=== PATIENT | male | born 2000 | race African-American/Black ===

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

== ENCOUNTER 2021-07-05 15:07 | Emergency (ER) | payer BC, MEDICAID ==
[~2021-07-05] VITALS: Ht 162 cm; Wt 100.0 kg
[~2021-07-05 15:07] MED LIST changes: -OXYC-471 PO; +OXYC1TAB11 PO
[2021-07-05 15:23] VITALS: BP_DIAS 95
[2021-07-05] MEDS ORDERED: TETRACAINE 0.5% OPHTH SOLN 4 ML BTL (SINGLE DOSE ONLY) OP ONE (15:30)
[2021-07-05] MEDS ORDERED: BSS 15 ML IR ONE (15:30)
[2021-07-05] MEDS ORDERED: FLUORESCEIN (FLUOR-I-STRIPS) 1 MG STRP OU ONE (15:30)
[2021-07-05] MEDS ORDERED: TETANUS,DIPTH,PERTUSS P/F (BOOSTRIX) 0.5 ML VIAL IM ONE (15:30)
--- NOTE | 2021-07-05 15:34 | ED EENT ---
History of Present Illness General Chief Complaint: Eye Problems Stated Complaint: FOREIGN OBJECT IN EYE/UNABLE TO SEE Source: patient Exam Limitations: no limitations History of Present Illness Date Seen by Provider: Jul 05, 2021 Time Seen by Provider: 15:25 Initial Comments Patient is a 21-year-old male who presents to the emergency department today with a chief complaint of right eye pain, decreased visual acuity. Increased tearing. Patient states that he was trying to remove a chain from a 4 szym[employer] w hen the chain came back and hit him in the eye. He had immediate onset of the above-stated symptoms. Unknown last tetanus. No chronic medical illnesses, not a diabetic. No history of similar complaints in the past. No other complaints of illness or injury. All other review of systems reviewed and negative except as stated. Timing/Duration: abrupt Location: eye (R) Prearrival Treatment: no prearrival treatment Allergies and Home Medications Allergies Coded Allergies: Penicillins (Verified Allergy, Unknown, 08/04/14) azithromycin (Verified Allergy, Unknown, 08/04/14) prednisone (Verified Adverse Reaction, Mild, 03/07/12) EXTREMELY HYPER Patient Home Medication List Home Medication List Reviewed: Yes Albuterol Sulfate (Albuterol Sulfate Hfa) 8.5 Gm Hfa.aer.ad, 8.5 GM IH QID PRN for SHORTNESS OF BREATH Prescribed by: GRANT GOMES on 10/04/13 2341 Cephalexin Monohydrate (Cephalexin) 500 Mg Capsule, 1 EACH PO TID Prescribed by: ALEXI MONTANEZ on 11/05/142122 Metoprolol Succinate (Toprol Xl) 25 Mg Tab, 25 MG PO DAILY, (Reported) Entered as Reported by: ANA LEBLANC on 10/04/132147 Oseltamivir Phosphate (Rx-Tamiflu) 75 Mg Cap, 75 MG PO BID Prescribed by: ALEXI MONTANEZ on 11/05/142121 Oxycodone HCl/Acetaminophen (Oxycodone-Acetaminophen 5-325) 1 Each Tablet, 1 EACH PO Q6H PRN for PAIN-MODERATE Prescribed by: HANY ZULUAGA on 02/25/194 Oxycodone HCl/Acetaminophen (Oxycodone-Acetaminophen 5-325) 1 Each Tablet, 1 EACH PO Q4H PRN for PAIN-MODERATE Prescribed by: HANY ZULUAGA on 04/10/192134 Review of Systems Review of Systems Constitutional: see HPI Eyes: Blindness (right eye), Blurred Vision, Decreased Acuity, Foreign Body Sensation, Pain, Photophobia Ears: No Symptoms Reported Nose: no symptoms reported Mouth: no symptoms reported Respiratory: no symptoms reported Cardiovascular: no symptoms reported Gastrointestinal: no symptoms reported Musculoskeletal: no symptoms reported Skin: no symptoms reported All Other Systems Reviewed Negative Unless Noted: Yes Past Wngmmra-Grgaja-Yjfyjx Hx Immunizations Up To Date Tetanus Booster (TDap): Less than 5yrs PED Vaccines UTD: Yes Seasonal Allergies Seasonal Allergies: No Past Medical History Surgeries: Yes (r ankle) Orthopedic, Tonsillectomy Respiratory: No Cardiac: Yes High Cholesterol, Hypertension Neurological: No Reproductive Disorders: No Sexually Transmitted Disease: No Genitourinary: No Gastrointestinal: No Musculoskeletal: No Endocrine: No HEENT: No Cancer: No Psychosocial: Yes ADD/ADHD Integumentary: No Blood Disorders: No Family Medical History No Pertinent Family Hx Physical Exam Vital Signs Vital Signs - First Documented 07/05/21 15:23 Pulse 91 Resp 18 B/P (MAP) 149/95 (113) Pulse Ox 95 Height, Weight, BMI Height: 5'10.00" Weight: 260lbs. 0.0oz. 117.677973hk; 37.00 BMI Method:Stated General Appearance: WD/WN, no apparent distress Neck: non-tender, full range of motion, normal inspection Cardiovascular: regular rate, rhythm Respiratory: normal breath sounds, no respiratory distress, no accessory muscle use Gastrointestinal: non tender, soft Neurologic/Psychiatric: alert, normal mood/affect, oriented x 3 Skin: normal color, warm/dry Progress/Results/Core Measures Results/Orders My Orders Orders - GEMINI LAGUERRE MD Dipht,Pertuss(Acell),Tet Adult (Boostrix (07/05/21 15:30) Tetracaine 0.5% Ophth Lilia Sdv (Tetracai (07/05/21 15:30) Fluorescein Strips (Lqaga-A-Rmjppa) (07/05/21 15:30) Balanced Salt Irrigation Soln (Bss Irrig (07/05/21 15:30) Medications Given in ED Current Medications Medications Dose Ordered Sig/Jami Route Start Time Stop Time Status Last Admin Dose Admin Diphtheria/ Tetanus/Acell Pertussis 0.5 ml ONCE ONCE IM 07/05/21 15:30 07/05/21 15:32 DC 07/05/21 15:49 0.5 ML Fluorescein Sodium 1 mg ONCE ONCE OU 07/05/21 15:30 07/05/21 15:32 DC 07/05/21 15:49 1 MG Tetracaine HCl 1 OR 2 DROPS INTO AFFEC... ONCE ONCE OP 07/05/21 15:30 07/05/21 15:32 DC 07/05/21 15:49 4 ML Vital Signs/I&O 07/05/21 15:23 Pulse 91 Resp 18 B/P (MAP) 149/95 (113) Pulse Ox 95 Progress Progress Note : Time: 15:54 Progress Note Patient had a hard time obtaining anesthesia with the tetracaine, quite alot of tears. No significant uptake on staining. Has a vertical laceration throught the cornea at the 11 o'clock position with a speck of a black substance at the apex of the injury. pupil is VERY difficult to see throught a diffuse hyphema. I am unable to comment on any pupillary response. lots of ciliary flush noted. He states completely unable to see the eye chart with his right eye. left eye visual acuity 20/40. [address] Burnett initially and subsequently Dr. GILL called me back. States that he would like to see him in the office at 545 today. Stated that I did not need to do intraocular pressure testing prior to sending him out. He will further evaluate him and decide whether or not he needs to be sent to [place] to a surgeon. Patient's pain is fairly well controlled. Will offer some ibuprofen. All questions are sought and answered. Patient stable for discharge, to Dr. GILL's office as stated Departure Impression Primary Impression: Corneal laceration of right eye Qualified Codes: S05.31XA - Ocular laceration without prolapse or loss of intraocular tissue, right eye, initial encounter Additional Impression: Hyphema of right eye Disposition: 01 HOME, SELF-CARE Condition: Stable Departure-Patient Inst. Decision time for Depature: 16:44 Referrals: SAROJ SANZ MD (PCP) Primary Care Physician ALMAS GILL OD Patient Instructions: Hyphema Add. Discharge Instructions: wear the eye shield until you see Dr Gill at 5:45 in his office today. return to the Emergency Department for any new, emergent or concerning symptoms. Images Eye 1 - Laceration GEMINI LAGUERRE MD Jul 05, 2021 15:34
[2021-07-05] MEDS ORDERED: IBUPROFEN 600 MG (MOTRIN) TAB PO ONE (17:00)
[2021-07-05 17:01] VITALS: BP_SYST 149
== END 2021-07-05 17:11 | disposition home or self-care (01) ==
LOC: EDUNIT# 15:07 → ER 15:11
DX: S05.31XA Ocular laceration without prolapse or loss of intraocular tissue, right eye, initial encounter (principal); H21.01 Hyphema, right eye; I10 Essential (primary) hypertension; Z23 Encounter for immunization; Z79.899 Other long term (current) drug therapy; W22.8XXA Striking against or struck by other objects, initial encounter
CPT/HCPCS: 90715; 99282

== ENCOUNTER 2023-05-02 05:41 | Emergency (ER) | payer BC, MEDICAID ==
[~2023-05-02] VITALS: Ht 180 cm; Wt 111.0 kg
[2023-05-02 05:48] VITALS: BP 157/103
--- NOTE | 2023-05-02 06:21 | ED General ---
General Chief Complaint: General Problems/Pain Stated Complaint: ACID REFLUX Nursing Triage Note: PT TO ED W/ "BURNING IN CHEST". STATES LAST TIME HE HAD SIMILAR SYMPTOMS, WAS GIVEN "MEDS FOR ACID" BUT STATES "THEY'RE DOING NOTHING". PT DENIES TAKING ANYTHING OTC FOR SYMPTOMS AT THIS TIME. Source of Information: Patient Exam Limitations: No Limitations History of Present Illness Date Seen by Provider: May 02, 2023 Time Seen by Provider: 06:01 Initial Comments 23-year-old male presents emergency department today for acid reflux symptoms. Symptoms present for about a week and he states are severe. He has pain with swallowing and severe burning in his chest and stomach when he swallows anything at this point. Symptoms seem to be brought on during a viral illness. Other symptoms resolved but the reflux type symptoms have persisted. He was seen in [facility] 2 days ago and given pantoprazole, Carafate without much relief. No bloody or dark tarry stools. No fevers or chills. He has had some intermittent nausea but no vomiting. All other systems reviewed and negative except documented per HPI. Voice recognition software was used to help create this chart Allergies and Home Medications Allergies Coded Allergies: Penicillins (Verified Allergy, Unknown, 08/04/14) azithromycin (Verified Allergy, Unknown, 08/04/14) prednisone (Verified Adverse Reaction, Mild, 03/07/12) EXTREMELY HYPER Patient Home Medication List Home Medication List Reviewed: Yes Albuterol Sulfate (Albuterol Sulfate Hfa) 8.5 Gm Hfa.aer.ad, 8.5 GM IH QID PRN for SHORTNESS OF BREATH Prescribed by: GRANT GOMES on 10/04/13 2341 Cephalexin Monohydrate (Cephalexin) 500 Mg Capsule, 1 EACH PO TID Prescribed by: ALEXI MONTANEZ on 11/05/142122 Metoprolol Succinate (Toprol Xl) 25 Mg Tab, 25 MG PO DAILY, (Reported) Entered as Reported by: ANA LEBLANC on 10/04/132147 Oseltamivir Phosphate (Rx-Tamiflu) 75 Mg Cap, 75 MG PO BID Prescribed by: ALEXI MONTANEZ on 11/05/142121 Oxycodone HCl/Acetaminophen (Oxycodone-Acetaminophen 5-325) 1 Each Tablet, 1 EACH PO Q6H PRN for PAIN-MODERATE Prescribed by: HANY ZULUAGA on 02/25/19 0314 Oxycodone HCl/Acetaminophen (Oxycodone-Acetaminophen 5-325) 1 Each Tablet, 1 EACH PO Q4H PRN for PAIN-MODERATE Prescribed by: HANY ZULUAGA on 04/10/192134 Review of Systems Review of Systems Constitutional: see HPI Past Rggxxub-Ptcaeb-Bacuho Hx Patient Social History Tobacco Use?: No Use of E-Cig and/or Vaping dev: No Substance use?: No Alcohol Use?: Yes Pt feels they are or have been: No Immunizations Up To Date Tetanus Booster (TDap): Less than 5yrs PED Vaccines UTD: Yes Seasonal Allergies Seasonal Allergies: No Past Medical History Surgery/Hospitalization HX: RT ANKLE RT SHOULDER T&A EYE Surgeries: Yes (r ankle) Orthopedic, Tonsillectomy Respiratory: No Cardiac: Yes High Cholesterol, Hypertension Neurological: No Reproductive Disorders: No Sexually Transmitted Disease: No Genitourinary: No Gastrointestinal: No Musculoskeletal: No Endocrine: No HEENT: No Cancer: No Psychosocial: Yes ADD/ADHD Integumentary: No Blood Disorders: No Family Medical History No Pertinent Family Hx Physical Exam Vital Signs Vital Signs - First Documented 05/02/23 05:48 Temp 35.5 Pulse 71 Resp 20 B/P (MAP) 157/103 (121) Pulse Ox 97 O2 Delivery Room Air Capillary Refill : Less Than 3 Seconds Height, Weight, BMI Height: 5'10.00" Weight: 260lbs. 0.0oz. 117.382598sj; 34.00 BMI Method:Stated General Appearance: No Apparent Distress, WD/WN HEENT: Normal ENT Inspection, Pharynx Normal Neck: Full Range of Motion, Normal Inspection, Non Tender, Supple Respiratory: Chest Non Tender, Lungs Clear, Normal Breath Sounds, No Accessory Muscle Use, No Respiratory Distress Cardiovascular: Regular Rate, Rhythm, No Murmur, Normal Peripheral Pulses Gastrointestinal: Normal Bowel Sounds, No Organomegaly, Non Tender, Soft Extremity: Normal Capillary Refill, Normal Inspection, Normal Range of Motion, Non Tender, No Calf Tenderness Neurologic/Psychiatric: Alert, Oriented x3, Normal Mood/Affect Skin: Normal Color, Warm/Dry Progress/Results/Core Measures Suspected Sepsis SIRS Temperature: Pulse: 71 Respiratory Rate: 20 Blood Pressure 157 /103 Mean: 121 Results/Orders Vital Signs/I&O 05/02/23 05:48 Temp 35.5 Pulse 71 Resp 20 B/P (MAP) 157/103 (121) Pulse Ox 97 O2 Delivery Room Air Capillary Refill : Less Than 3 Seconds Blood Pressure Mean: 121 Departure Communication (Admissions) Patient is hemodynamically stable. He has no red flag symptoms for ACS and given his age and lack of comorbidities no indication for work-up at this time. His symptoms are consistent with GERD, possible esophagitis. He is already on Protonix as well as Carafate without much relief. Recommended he add Pepcid and we will go ahead and referred him to general surgeon for possible endoscopy. Impression Primary Impression: GERD (gastroesophageal reflux disease) Qualified Codes: K21.9 - Gastro-esophageal reflux disease without esophagitis Disposition: HOME, SELF-CARE Condition: Stable Departure-Patient Inst. Referrals: [facility] NEIL MD NO,LOCAL PHYSICIAN (PCP) Primary Care Physician Patient Instructions: Acid Reflux and GERD in Adults (DC) Add. Discharge Instructions: Add Pepcid to your current acid regimen. Follow up by calling to schedule with general surgeon as recommended. Return to the ER for any severe concerns. All discharge instructions reviewed with patient and/or family. Voiced understanding. JADE PINZON DO May 02, 2023 06:20
== END 2023-05-02 06:25 | disposition home or self-care (01) ==
LOC: EDUNIT# 05:41 → ER 05:45
DX: K21.9 Gastro-esophageal reflux disease without esophagitis (principal)
CPT/HCPCS: 99281

== ENCOUNTER 2023-05-10 05:42 | Outpatient (CLI) | payer BC, MEDICAID ==
[~2023-05-10] VITALS: Ht 180.3 cm; Wt 107.5 kg
[2023-05-13] MEDS ORDERED: PANT40TA52 PO (13:04)
== END 2023-05-13 13:06 | disposition home or self-care (01) ==
LOC: PREOP 05:42
PROVIDERS: ATTEND Surgery
DX: Z01.818 Encounter for other preprocedural examination (principal)

== ENCOUNTER 2023-05-17 10:26 | Day surgery (SDC) | payer BC, MEDICAID ==
[~2023-05-17] VITALS: Ht 180 cm; Wt 107.5 kg
[~2023-05-17 10:26] MED LIST changes: +PANT40TA52 PO
[2023-05-17] MEDS ORDERED: LACTATED RINGERS 1,000 ML IV STA (10:34)
--- NOTE | 2023-05-17 10:40 | Progress Note-Pre Operative ---
Pre-Operative Progress Note Date of Available H&P: May 06, 2023 Date H&P Reviewed: May 17, 2023 Time H&P Reviewed: 10:38 History & Physical: H&P Reviewed, Patient Examed, No changes noted Pre-Operative Diagnosis: Epigastric pain ANNMARIE LIPSCOMB DO May 17, 2023 10:40
[2023-05-17] MEDS ORDERED: HURRICAINE EXT TUBE (BENZOCAINE) XX PRN (10:45)
[2023-05-17 11:00] VITALS: BP 128/88
[2023-05-17] MEDS ORDERED: PROPOFOL INJECTION 50 ML IV ONE ×2 (11:10→11:39)
[2023-05-17] MEDS ORDERED: MIDAZOLAM 2 MG/2 ML (VERSED) VIAL ONE (11:10)
--- NOTE | 2023-05-17 11:38 | Progress Note-Post Operative ---
Post-Operative Progess Note Surgeon (s)/Film Processor (s) Surgeon ANNMARIE LIPSCOMB DO Film Processor: none Pre-Operative Diagnosis Epigastric pain Post-Operative Diagnosis Severe Esophagitis Hiatal hernia Gastritis Procedure & Operative Findings Date of Procedure 05/17/23 Procedure Performed/Findings EGD with biopsy PROCEDURE NOTE: After informed consent was obtained, the patient was brought to the endoscopy suite, placed in bed in left lateral decubitus position. He was administered IV sedation by the SHRIMP PICKER who then monitored vitals the entire time, heart rate, blood pressure and pulse ox and the scope was inserted down the mouth through the esophagus into the stomach. Pushed into the stomach, pushed past the antrum into the duodenum. Duodenum looked good. Pulled back, noted some mild Gastritis and did a biopsy of the antrum. Next, retroflexed the sco pe, saw a small hiatal hernia, took a picture of this and then pulled the scope into the GE junction. GE junction had severe inflamation and possibly ulceration. I then did two biopsies of the GE junction. Pushed the scope back into the stomach, suctioned all the air out of the stomach. At this point pulled the scope up the esophagus and out the mouth. The patient tolerated the procedure, and he recovered in endoscopy suite. Anesthesia Type IV sedation by SHRIMP PICKER Estimated Blood Loss Estimated blood loss (mL): scant Specimens/Packing Specimens Removed antral bx Body of stomach bx GE jxn bx x 2 ANNMARIE LIPSCOMB DO May 17, 2023 11:38
[2023-05-17 11:40] VITALS: BP 137/61
--- NOTE | 2023-05-17 11:44 | Endoscopy Discharge Instruct ---
Endo Procedure/Findings Findings 1.: Francis's Esophagus 2.: Hiatal Hernia 3.: Gastritis Discharge Instructions - Activity: You might feel a little sleepy until tomorrow. This is due to the medicine you received to relax you. Until tomorrow, you should: NOT drive a car, operate machinery or power tools. NOT drink any alcoholic beverages. NOT make any important decisions or sign importortant papers. Do not return to work until tomorrow, unless otherwise instructed. Resume previous activities tomorrow. Diet: Start by taking liquids. If you tolerate liquids, advance to solid food. 1.: EGD in 1 year Notify Physician - If you experience excessive bleeding, unusual abdominal pain, fever, or chest pain, contact your doctor immediately. Follow-Up: Other Follow up in my office in one week ANNMARIE LIPSCOMB DO May 17, 2023 11:44
[2023-05-17 11:45] VITALS: BP 142/67
[2023-05-17 11:52] VITALS: BP 156/83
[2023-05-17 12:17] VITALS: BP 156/83
--- NOTE | 2023-05-17 12:17 | Anesthesia-General Post-Op ---
MAC Patient Condition Mental Status/LOC: Same as Preop Cardiovascular: Satisfactory Nausea/Vomiting: Absent Respiratory: Satisfactory Pain: Controlled Complications: Absent Post Op Complications Complications None Follow Up Care/Instructions Patient Instructions None needed. Anesthesiology Discharge Order Discharge Order Patient is doing well, no complaints, stable vital signs, no apparent adverse anesthesia problems. No complications reported per nursing. CORNELIO JAMES CRNA May 17, 2023 12:17
== END 2023-05-17 12:27 | disposition home or self-care (01) ==
LOC: ENDO 10:26
PROVIDERS: ATTEND Surgery
DX: K21.00 Gastro-esophageal reflux disease with esophagitis, without bleeding (principal); K44.9 Diaphragmatic hernia without obstruction or gangrene; K29.70 Gastritis, unspecified, without bleeding